=== PATIENT | male | born 1950 | race Caucasian/White ===

== ENCOUNTER → 2020-09-28 09:17 | Outpatient (CLI) | payer MEDICARE, OTHER ==
[2016-04-03 13:22] VITALS: BMI 26.1
--- NOTE | ~2020-09-28 | ST ---
PATIENT:BERT CRUM MEDICAL RECORD: [id number] SEX: M LOCATION:[facility] ORDER #: ADMISSION DATE: 09/28/20 AGE OF PATIENT: 70 REFERRING PHYSICIAN: INTERPRETING PHYSICIAN: AUGIE HONEYCUTT MD DATE OF SERVICE: 09/28/2020 NUCLEAR STRESS TEST GATED: Gated is normal. Normal wall motion. Normal wall thickening. Calculated EF 64%. SPECT IMAGING: SPECT imaging was performed. FINDINGS: 1. Short axis view: Short axis view shows good uptake along the anterior wall, lateral wall, and inferior wall. 2. Horizontal axis: Horizontal axis confirms good uptake along the anterior wall and inferior wall. 3. Vertical axis: Vertical axis shows good uptake along the lateral wall and septum. FINAL IMPRESSION: 1. Normal gated, normal wall motion, normal EF 64%. 2. Normal SPECT imaging. This gentleman with known history of coronary artery disease. This scan is felt to be low risk for any significant prior myocardial ischemia. No ongoing ischemia is noted. Continue medical management. Risk factor modification is recommended. TRANSINT:[id number] Voice Confirmation ID: [id number] DOCUMENT ID: [id number] AUGIE HONEYCUTT MD CC: [id number] DICTATION DATE: 09/29/20 1107 CHILD CARE COUNSELOR: 09/30/20 0329 DEP CLI 09/28/20 [id number] [place] [id number]
[~2020-09-28 09:17] MED LIST: BAYER CHEWABLE81 MG PO; CRESTOR40 MG PO; LISINOPRIL5 MG PO; ZANTAC150 MG PO
== END | disposition home or self-care (01) ==
LOC: D.HCCARDIO 09:17
PROVIDERS: ATTEND Internal Medicine Interventional Cardiology
DX: I25.10 Atherosclerotic heart disease of native coronary artery without angina pectoris (principal)